=== PATIENT | male | born 1955 | race Caucasian/White ===

== ENCOUNTER → 2019-04-08 | Day surgery (SDC) | payer OTHER ==
[2019-04-03 13:08] LABS: BASOPHILS # (AUTO) 0.1 (0.0-0.1); BASOPHILS % 0.6 % (0.0-1.0); EOSINOPHILS # (AUTO) 0.1 (0.0-0.4); EOSINOPHILS % 1.1 % (0.0-6.0); HEMATOCRIT 38.3 % (38.2-49.6); LYMPHOCYTES # (AUTO) 2.9 (1.0-3.2); LYMPHOCYTES % 27.8 % (18.0-39.1); MEAN CORPUSCULAR HEMOGLOBIN 30.7 pg (28-32); MEAN CORPUSCULAR HGB CONC 33.9 g/dL (31-35); MEAN CORPUSCULAR VOLUME 90.5 fL (81-99); MONOCYTES # (AUTO) 0.7 (0.2-0.8); MONOCYTES % 6.8 % (4.4-11.3); NEUTROPHILS # (AUTO) 6.5 (2.1-6.9); NEUTROPHILS % 63.4 % (38.7-80.0); PLATELET COUNT 289 x10e3/uL (140-360); RED BLOOD COUNT 4.23 x10e6/uL (4.3-5.7); RED CELL DISTRIBUTION WIDTH 14.7 % (11.7-14.4)
[2019-04-03 13:37] LABS: ANION GAP 16.8 mmol/L (8-16); BLOOD UREA NITROGEN 24 mg/dL (7-26); BUN/CREATININE RATIO 24 (6-25); CALCIUM 9.2 mg/dL (8.4-10.2); CARBON DIOXIDE 26 mmol/L (22-29); CHLORIDE 99 mmol/L (98-107); EST GLOMERULAR FILTRATION RATE > 60 ML/MIN (60-); GLUCOSE 103 mg/dL (74-118); POTASSIUM 3.8 mmol/L (3.5-5.1); SODIUM 138 mmol/L (136-145)
--- NOTE | 2019-04-03 13:57 | Diagnostic Imaging Report ---
EXAMINATION: CHEST 2 VIEWS INDICATION: Pre-operative COMPARISON: None FINDINGS: LINES/TUBES:None LUNGS:The lungs are well-inflated. No focal consolidation or pulmonary edema. PLEURA:No pleural effusion or pneumothorax. MEDIASTINUM:The cardiomediastinal silhouette appears normal in size and shape. BONES/SOFT TISSUES:No acute osseous injury. ABDOMEN:No free air under the diaphragm. IMPRESSION: No focal pneumonia or pulmonary edema. Signed by: Jere Mckinney MD on 04/03/2019 1:54 PM
[~2019-04-08] MED LIST: CEFTRIAXONE SOD 1 GM/NS 50 ML 50 ML IV ONE; CIPRO PO; CYCLOBENZAPRINE10 MG PO; DEXAMETHASONE SOD PHOS INJ 4 MG/ML VIAL ONE; FENTANYL CITRATE/PF 100MCG/2 ML INJ ONE; FLOMAX0.4 MG PO; GENTAMICIN 80MG/NS 100 ML 200 ML IV ONE; HYDROCHLOROTHIA25 MG PO; LIDOCAINE HCL 2% LOCAL INJ 5 ML SDV VIAL INJ ONE; LISINOPRIL10 MG PO; METOPROLOL TART25 MG PO; MIDAZOLAM HCL 2 MG/2 ML VIAL ONE; ONDANSETRON HCL INJ 2MG/ML 2ML 2 MG/ML VIAL ONE; PANTOPRAZOLE SO40 MG PO; PRAMIPEXOLE PO; PROPOFOL IV EMULSION 10 MG/ML 20 ML VIAL ONE; SEVOFLURANE INHAL SOLN 250 ML PEN BTL ONE
--- OUTSIDE RECORDS SUMMARY | 2019-04-08 09:41 | XMS REPORT | Clinical Summary ---
Author Author [facility] Organization [facility] Address Unknown Phone Unavailable Care Team Providers Care Event Specialist Food Demonstrator Name Role Phone Sylwia Talley PCP Allergies Not on File Medications Not on file Active Problems Not on file Encounters Care Team Description Date Type Specialty Patel Stevens MD Elevated prostate specific antigen (PSA); Enlarged prostate with urinary obstruction; Retention of urine, unspecified 03/20/2019 Hospital Radiology Encounter Patel Stevens MD Elevated prostate specific antigen (PSA) (Primary Dx); Enlarged prostate with urinary obstruction; Retention of urine, unspecified 03/19/2019 Transcribe Access Orders Patel Stevens MD Enlarged prostate with urinary retention (Primary Dx); Enlarged prostate with urinary obstruction 03/03/2019 Transcribe Access Orders after 04/07/2018 Social History Date Tobacco Use Types Packs/Day Years Used Never Assessed Sex Assigned at Date Recorded Not on file Industry Job Start Date Occupation Not on file Not on file Not on file Travel End Travel History Travel Start No recent travel history available. Last Filed Vital Signs Time Taken Vital Sign Reading - Blood Pressure - - Pulse - - Temperature - - Respiratory Rate - - Oxygen Saturation - - Inhaled Oxygen - Concentration 03/16/2019 3:00 PM CDT Weight 125 kg (275 lb) 03/16/2019 3:00 PM CDT Height 188 cm (6' 2") 03/16/2019 3:00 PM CDT Body Mass Index 35.31 Plan of Treatment Health Maintenance Due Date Last Done Comments COLONOSCOPY SCREENING 2004 SHINGLES VACCINES (#1) 2004 INFLUENZA VACCINE 04/02/2019 Procedures Comments Procedure Name Priority Date/Time Associated Diagnosis US PROSTATE Routine 03/20/2019 Elevated prostate 4:20 PM CDT specific antigen (PSA) Enlarged prostate with urinary obstruction Retention of urine, unspecified CT ABDOMEN PELVIS W Routine 03/16/2019 Enlarged prostate with CONTRAST 5:32 PM CDT urinary retention Enlarged prostate with urinary obstruction ESTIMATED GFR Routine 03/16/2019 4:44 PM CDT POC CREATININE Routine 03/16/2019 4:44 PM CDT after 04/07/2018 Results * US Prostate (03/20/2019 4:20 PM CDT) Specimen Addenda Addendum by Catie White DO on 03/20/2019 6:41 PM ADDENDUM #1 There is a typographical error in the report about the laterality of the prostate mass and cyst. The mass is in the left side of the central zone and a small cyst is in the right side of the central zone. The impression is as follow: IMPRESSION: Benign prostatic hyperplasia with approximately 3.2 x 2.5 x 3 cm heterogeneous hyperechoic mass within the left side of the central zone. Prostate ultrasound guided biopsy is suggested for further evaluation if clinical indicated. No focal lesions are identified in the peripheral zone. No gross abnormality of the seminal vesicles is seen. Narrative Performed At PROCEDURE:US PROSTATE HM [facility] CLINICAL HISTORY:R97.20 Elevated prostate specific antigen (PSA), N40.1 Benign prostatic hyperplasia with lower urinary tract symptoms, R97.2 N40.1 R33.9 ELEVATED PSA COMPARISON:None. TECHNIQUE: A transrectal examination of the prostate gland was performed in transverse and sagittal views with color-flow Doppler interrogation. The seminal vesicles were also interrogated. FINDINGS: The prostate gland measures 8.0 x 4.8 x 4.7 cm. The peripheral zone is compressed by an enlarged central gland. No focal lesions are identified. Heterogeneity in echotexture is demonstrated of the central zone with scattered coarse calcifications. An approximately 3.2 x 2.5 x 3 cm heterogeneous hyperechoic mass is seen within the right side of the central zone. An approximately 4 mm cyst is seen within the right side of the central zone. No gross abnormality of the seminal vesicles is seen. A Carrera catheter is noted. IMPRESSION: Benign prostatic hyperplasia with approximately 3.2 x 2.5 x 3 cm heterogeneous hyperechoic mass within the right side of the central zone. Prostate ultrasound guided biopsy is suggested for further evaluation if clinical indicated. No focal lesions are identified in the peripheral zone. No gross abnormality of the seminal vesicles is seen. [id number] Procedure Note Interface, Radiology Results Incoming - 03/20/2019 5:23 PM CDT PROCEDURE: US PROSTATE CLINICAL HISTORY: R97.20 Elevated prostate specific antigen (PSA), N40.1 Benign prostatic hyperplasia with lower urinary tract symptoms, R97.2 N40.1 R33.9 ELEVATED PSA COMPARISON: None. TECHNIQUE: A transrectal examination of the prostate gland was performed in transverse and sagittal views with color-flow Doppler interrogation. The seminal vesicles were also interrogated. FINDINGS: The prostate gland measures 8.0 x 4.8 x 4.7 cm. The peripheral zone is compressed by an enlarged central gland. No focal lesions are identified. Heterogeneity in echotexture is demonstrated of the central zone with scattered coarse calcifications. An approximately 3.2 x 2.5 x 3 cm heterogeneous hyperechoic mass is seen within the right side of the central zone. An approximately 4 mm cyst is seen within the right side of the central zone. No gross abnormality of the seminal vesicles is seen. A Carrera catheter is noted. IMPRESSION: Benign prostatic hyperplasia with approximately 3.2 x 2.5 x 3 cm heterogeneous hyperechoic mass within the right side of the central zone. Prostate ultrasound guided biopsy is suggested for further evaluation if clinical indicated. No focal lesions are identified in the peripheral zone. No gross abnormality of the seminal vesicles is seen. [id number] Performing Organization Address City/State/Zipcode Phone Number [facility] [address] [place] [address] * CT Abdomen Pelvis W Contrast (03/16/2019 5:32 PM CDT) Specimen Narrative Performed At EXAMINATION:[facility] CL[facility]ICAL [facility]: 63 yearsMale N40.1 Benign prostatic hyperplasia with lower urinary tract symptoms, R33.8 Other retention of urine, ENLARGED PROSTATE TECHNIQUE: Multiple axial images of the abdomen and pelvis were obtained following intravenous administration of iodinated contrast. Sagittal and coronal computerized reformatted images were also obtained. CT imaging was performed with iterative reconstruction techniques and/or automated exposure control to reduce radiation dose. COMPARISON:None. IMPRESSION: Abdomen: 1. No parenchymal abnormality is noted in the lung bases. 2.The the liver and the spleen are normal in appearance. 3.The pancreas and both adrenal glands are normal in appearance, and both kidneys are normal in appearance. 4.Very minimal edema is present in the proximal small bowel mesentery with some nonspecific small lymph nodes none of which measure over 8 mm in longitudinal diameter. These findings are very nonspecific, and may be within the limits of normal. Pelvis: 1. No bowel distention is appreciated. 2.Carrera catheter is present within the nondistended urinary bladder. 3.There is no evidence of pelvic mass, or fluid collection. 4.Spondylolysis is noted involving L5, with grade 1 anterolisthesis of L5 upon S1. [facility]-[id number] Procedure Note Interface, Radiology Results - 03/16/2019 6:39 PM CDT EXAMINATION: CT ABDOMEN PELVIS W CONTRAST CLINICAL HISTORY: 63 yearsMale N40.1 Benign prostatic hyperplasia with lower urinary tract symptoms, R33.8 Other retention of urine, ENLARGED PROSTATE TECHNIQUE: Multiple axial images of the abdomen and pelvis were obtained following intravenous administration of iodinated contrast. Sagittal and coronal computerized reformatted images were also obtained. CT imaging was performed with iterative reconstruction techniques and/or automated exposure control to reduce radiation dose. COMPARISON: None. IMPRESSION: Abdomen: 1. No parenchymal abnormality is noted in the lung bases. 2. The the liver and the spleen are normal in appearance. 3. The pancreas and both adrenal glands are normal in appearance, and both kidneys are normal in appearance. 4. Very minimal edema is present in the proximal small bowel mesentery with some nonspecific small lymph nodes none of which measure over 8 mm in longitudinal diameter. These findings are very nonspecific, and may be within the limits of normal. Pelvis: 1. No bowel distention is appreciated. 2. Carrera catheter is present within the nondistended urinary bladder. 3. There is no evidence of pelvic mass, or fluid collection. 4. Spondylolysis is noted involving L5, with grade 1 anterolisthesis of L5 upon S1. [facility]-[id number] Performing Organization Address City/State/Zipcode Phone Number [facility] [address] [place] [address] * Estimated GFR (03/16/2019 4:44 PM CDT) [facility] Signature Estimated GFR 70 mL/min/1.73 m2 [place] Comment: [facility] CatergoryUnits[facility] G1 >=90 Normal or high G2 60-89Mildly decreased R4a90-51 Mildly to moderately decreased D3b59-03 Moderately to severely decreased G4 15-29Severely decreased G5 <15Kidney failure The eGFR was calculated using the Chronic Kidney Disease Epidemiology Collaboration (CKD-EPI) equation. Interpretation is based on recommendations of the National Kidney Foundation-Kidney Disease Outcomes Quality Initiative (NKF-KDOQI) published in 2014. Specimen Blood Performing Organization Address City/State/Zipcode Phone Number [facility] [address] [place] [phone] PATHOLOGY AND GENOMIC MEDICINE [place] [facility] [address] [facility] [place] [address] HOSPITAL * POC creatinine (03/16/2019 4:44 PM CDT) POC creatinine 1.1 0.7 - 1.2 mg/dl [place] Comment: TAOISM Meter ID: [id number] [place] Industrial Pipefitter Journeyman: [facility] Specimen Blood Performing Organization Address City/[facility] Phone Number [facility] [address] [place] [place] [phone] PATHOLOGY AND GENOMIC MEDICINE [place] [phone] [facility] [place] [address] HOSPITAL after 04/07/2018 Insurance Type Payer Benefit Subscriber ID Effective Phone Address Plan / Dates Group HMO AETNA AETNA xxxxxxxxxx [id number] HMO,POS,EP resent O, MC/EC (Home) [place] [address] Advance Directives Patient has advance care planning documents on file. For more information, roxana e contact: Keo Hudson [address] [place] [address]
--- OUTSIDE RECORDS SUMMARY | 2019-04-08 09:41 | XMS REPORT | Summary of Care ---
Author Author [facility] Organization [facility] Address Unknown Phone Unavailable Encounter HQ Rosibel(FIN) [id number] Date(s): 06/14/16 - 06/15/16 [facility] [address], [address] [place] [address]- Vital Signs No data available for this section Problem List Condition Effective Dates Status Health Status Informant Anxiety(Confirmed) Active Arthritis(Confirmed) Active High blood Active pressure(Confirmed) Hyperlipidemia(Confi Active rmed) Neuropathy(Confirmed Active ) Allergies, Adverse Reactions, Alerts Substance Reaction Severity Status NKDA Active Medications simvastatin 20 mg oral tablet 20 mg=1 tab, PO, Bedtime, # 90 tab, 3 Refill(s), Pharmacy: [facility] [id number] Start Date: 06/14/16 Status: Ordered Results No data available for this section Immunizations No data available for this section Procedures No data available for this section Social History Social History Type Response Smoking Status Former smoker; Exposure to Tobacco Smoke None; Cigarette Smoking Last 365 Days No; Reg Smoking Cessation Counseling No1 130 plus years Assessment and Plan No data available for this section
--- OUTSIDE RECORDS SUMMARY | 2019-04-08 09:41 | XMS REPORT | Summary of Care ---
Author Author [facility] Address Unknown Phone Unavailable Encounter HQ Encntr_alijennifer(FIN) [id number] Date(s): 04/17/16 - 04/17/16 [facility] [address] [place] [phone] Discharge Disposition: Home or Self Care Attending Physician: Toro Knight MD Vital Signs No data available for this section Problem List Condition Effective Dates Status Health Status Informant Anxiety(Confirmed) Active Arthritis(Confirmed) Active High blood Active pressure(Confirmed) Hyperlipidemia(Confi Active rmed) Neuropathy(Confirmed Active ) Allergies, Adverse Reactions, Alerts Substance Reaction Severity Status NKDA Active Medications No data available for this section Results No data available for this section [...]
--- OUTSIDE RECORDS SUMMARY | 2019-04-08 09:41 | XMS REPORT | Summary of Care ---
Author Author [facility] Organization [facility] Address Unknown Phone Unavailable Encounter HQ Rosibel(SUSANNE) [id number] Date(s): 08/04/15 - 08/05/15 [facility] [address] [place] [address], [address] Vital Signs No data available for this section Problem List No data available for this section Allergies, Adverse Reactions, Alerts No data available for this section Medications hydrochlorothiazide 25 mg oral tablet 25 mg=1 tab, PO, Daily, # 90 tab, 0 Refill(s), Pharmacy: [facility], Refill auth for Dr. Knight fax to [phone]. PHONE: [phone]. DO NOT send eRX request. Start Date: 08/04/15 Status: Ordered Results No data available for this section Immunizations No data available for this section Procedures No data available for this section Social History No data available for this section Assessment and Plan No data available for this section
--- OUTSIDE RECORDS SUMMARY | 2019-04-08 09:41 | XMS REPORT | Summary of Care ---
Author Author [facility] Organization [facility] Address Unknown Phone Unavailable Encounter EDGAR Vincent) [id number] Date(s): 10/24/15 - 10/24/15 [facility] [address] [place] [address]- [facility] [phone] Discharge Disposition: Home Attending Physician: Vivi Oconnor MD Referring Physician: Saúl Bro MD Vital Signs Most recent to 1 oldest [Reference Range]: Height 187.96 cm (10/24/15 2:43 PM) Temperature Oral 98.1 DegF [96.4-99.1 DegF] (10/24/15 2:43 PM) Weight 115.17 kg (10/24/15 2:43 PM) Body Mass Index 32.6 m2 (10/24/15 2:43 PM) Problem List Condition Effective Dates Status Health Status Informant Anxiety(Confirmed) Active Arthritis(Confirmed) Active High blood Active pressure(Confirmed) Hyperlipidemia(Confi Active rmed) Neuropathy(Confirmed Active ) Allergies, Adverse Reactions, Alerts Substance Reaction Severity Status NKDA Active Medications dicyclomine 20 mg oral tablet 20 mg=1 tab, PO, QID, 0 Refill(s) Start Date: 10/24/15 Status: Ordered GoLYTELY oral powder for reconstitution See Instructions, Take as directed by physician., # 1 ea, 0 Refill(s), Pharmacy: [facility] [id number] Start Date: 10/24/15 Status: Ordered lisinopril 10 mg oral tablet 10 mg=1 tab, PO, Daily, 0 Refill(s) Start Date: 10/24/15 Status: Ordered metoprolol tartrate 25 mg oral tablet 25 mg=1 tab, PO, BID, 0 Refill(s) Start Date: 10/24/15 Status: Ordered pantoprazole 40 mg oral granule =1 Pack, PO, Daily, # 30 ea, 0 Refill(s) Start Date: 10/24/15 Status: Ordered simvastatin 20 mg oral tablet 20 mg=1 tab, PO, Bedtime, 0 Refill(s) Start Date: 10/24/15 Status: Ordered Results No data available for [...]
--- OUTSIDE RECORDS SUMMARY | 2019-04-08 09:41 | XMS REPORT | Summary of Care ---
Author Organization Unknown Address Unknown Phone Unavailable Encounter HQ Encntr_alias(FIN) [id number] Date(s): 02/26/14 - 03/27/14 [facility] Discharge Disposition: Home Physician Attending: Skip Duarte MD Reason for Visit LT KNEE MEDIAL MENISCUS TEAR Problem List No data available for this section Allergies, Adverse Reactions, Alerts No data available for this section Medications No data available for this section Medications Administered During Your Visit No data available for this section Immunizations No data available for this section
--- OUTSIDE RECORDS SUMMARY | 2019-04-08 09:41 | XMS REPORT | Continuity of Care Document ---
Author Author [employer] Address Unknown Phone Unavailable Care Team Providers Care Warp Starter Name Role Phone [employer] Information [facility] Unavailable Unavailable Problems Problem Status Onset Date Classification Date Reported Comments Source SURGERY CLEARANCE Active 03/24/2019 [facility] Other cardiomyopathies 08/21/2018 03/03/2019 [facility] F/U Active 05/29/2018 [facility] FOLLOW UP Active 03/11/2017 [facility] BDDC - Z12.11 ENCOUNTER FOR SCREENING FO Active 10/24/2015 [facility] ABD PAIN [phone] Active 10/18/2015 [facility] Anxiety Active Problem 03/29/2019 [facility], [facility] Arthritis Active Problem 03/29/2019 [facility], [facility] High blood pressure Active Problem 03/29/2019 [facility], [facility] Hyperlipidemia Active Problem 03/29/2019 [facility], [facility] Neuropathy Active Problem 03/29/2019 [facility], [facility] Body mass index 36.0-36.9, adult 03/03/2019 [facility] Other obesity 03/03/2019 [facility] Essential hypertension 03/03/2019 [facility] Hyperlipidemia, unspecified 03/03/2019 [facility] Personal history of nicotine dependence 03/03/2019 [facility] Cardiomyopathy Active Problem 03/29/2019 [facility] Central obesity Active Problem 03/29/2019 [facility] Medications Medication Details Route Status Patient Instructions Ordering Provider Order Date Source metoprolol tartrate 25 mg oral tablet 25 mg=1 tab, PO, BID, # 180 tab, 0 Refill(s), Pharmacy: [facility], For Refill request please fax to [phone] Active 07/29/2017 [facility] Hydrochlorothiazide 25 MG Oral Tablet 25 mg=1 tab, PO, Daily, # 90 tab, 0 Refill(s), Pharmacy: [id number], For Refill request please fax to [phone] Active 07/29/2017 [facility] Hydrochlorothiazide 25 MG Oral Tablet 25 mg=1 tab, PO, Daily, # 90 tab, 3 Refill(s), Pharmacy: [facility] Active 06/27/2016 [facility] lisinopril 10 mg oral tablet 1.5 tablet, PO, BID, # 270 tab, 3 Refill(s), Pharmacy: [facility] Active 06/27/2016 [facility] simvastatin 20 mg oral tablet 20 mg=1 tab, PO, Bedtime, # 90 tab, 3 Refill(s), Pharmacy: [facility] Active 06/27/2016 [facility] metoprolol tartrate 25 mg oral tablet 25 mg=1 tab, PO, BID, X 90 day, # 180 tab, 3 Refill(s), Pharmacy: [facility] [id number] Active 06/25/2016 [facility] Hydrochlorothiazide 25 MG Oral Tablet 25 mg=1 tab, PO, Daily, # 90 tab, 3 Refill(s), Pharmacy: [facility] [id number] No Longer Active 06/25/2016 [facility] simvastatin 20 mg oral tablet 20 mg=1 tab, PO, Bedtime, # 90 tab, 3 Refill(s), Pharmacy: [facility] [id number] Active 06/14/2016 [facility] lisinopril 10 mg oral tablet 1.5 tablet, PO, BID, # 90 tab, 3 Refill(s), Pharmacy: [facility] [id number] Active 04/05/2016 [facility] simvastatin 20 mg oral tablet 20 mg=1 tab, PO, Bedtime, # 90 tab, 0 Refill(s), Pharmacy: [facility] [id number] Active 02/24/2016 [facility] lisinopril 10 mg oral tablet 10 mg=1 tab, PO, BID, # 180 tab, 0 Refill(s), Pharmacy: [facility] [id number] Active 02/24/2016 [facility] metoprolol tartrate 25 mg oral tablet 25 mg=1 tab, PO, BID, # 180 tab, 0 Refill(s), Pharmacy: [facility] [id number] Active 02/24/2016 [facility] Hydrochlorothiazide 25 MG Oral Tablet 25 mg=1 tab, PO, Daily, # 90 tab, 0 Refill(s), Pharmacy: [facility] [id number] Active 02/24/2016 [facility] GoLYTELY oral powder for reconstitution See Instructions, Take as directed by physician., # 1 ea, 0 Refill(s), Pharmacy: [facility] [id number] Active 10/24/2015 [facility] dicyclomine 20 mg oral tablet 20 mg=1 tab, PO, QID, 0 Refill(s) Active 10/24/2015 [facility] lisinopril 10 mg oral tablet 10 mg=1 tab, PO, Daily, 0 Refill(s) Active 10/24/2015 [facility] metoprolol tartrate 25 mg oral tablet 25 mg=1 tab, PO, BID, 0 Refill(s) Active 10/24/2015 [facility] simvastatin 20 mg oral tablet 20 mg=1 tab, PO, Bedtime, 0 Refill(s) Active 10/24/2015 [facility] pantoprazole 40 mg oral granule =1 Pack, PO, Daily, # 30 ea, 0 Refill(s) Active 10/24/2015 [facility] Hydrochlorothiazide 25 MG Oral Tablet 25 mg=1 tab, PO, Daily, # 90 tab, 0 Refill(s), Pharmacy: [facility] [id number], Refill auth for Dr. Knight fax to [phone]. PHONE: [phone]. DO NOT send eRX request. Active 08/04/2015 [facility] Allergies, Adverse Reactions, Alerts Substance Category Reaction Severity Reaction type Status Date Reported Comments Source No Known Medication Allergies Assertion Drug allergy [facility] Immunizations No Data Provided for This Section Results No Data Provided for This Section Pathology Reports No Data Provided for This Section Diagnostic Reports Report Value Date Source Ext Lower Arterial Doppler bilat US EXAM: US BILATERAL LOWER EXTREMITY ARTERIAL DOPPLER DATE: 04/17/2016 10:13 AM CDT INDICATION: S91.109A Unspecified open wound of unspecified toe(s) without damage to nail, initial encounter ADDITIONAL INFORMATION: None. COMPARISON: None. TECHNIQUE: Multiplanar grayscale, color Doppler and spectral Doppler ultrasound images of the bilateral lower extremity arteries. Segmental pressures were obtained and ankle/brachial indices were calculated. FINDINGS: Scattered areas of mild atherosclerotic plaque is seen without any focal areas of narrowing or significantly increased velocities to indicate hemodynamically significant stenosis. Right Extremity Waveforms: Common Femoral Artery: 88cm/s Triphasic Superficial Femoral Artery: 80cm/s Triphasic Popliteal Artery: 65cm/s Triphasic Posterior Tibialis Artery: 73cm/s Triphasic Anterior Tibialis Artery: 61cm/s Triphasic Peroneal Artery: 72cm/s Triphasic Dorsalis Pedis Artery: 38cm/s Triphasic Left Extremity Waveforms: Common Femoral Artery: 58cm/s Triphasic Superficial Femoral Artery: 76cm/s Triphasic Popliteal Artery: 61cm/s Triphasic Posterior Tibialis Artery: 1:15cm/s Triphasic Anterior Tibialis Artery: 75cm/s Triphasic Peroneal Artery: 78cm/s Triphasic Dorsalis Pedis Artery: 39cm/s Triphasic IMPRESSION: 1. Normal Doppler exam with triphasic waveforms throughout bilateral lower extremities.. 04/17/2016 [facility] Consultation Notes No Data Provided for This Section Discharge Summaries No Data Provided for This Section History and Physicals No Data Provided for This Section Vital Signs Vital Sign Value Date Comments Source BMI Calculated 36.97 03/27/2019 [facility] Weight 123.636 03/27/2019 [facility] Systolic (mm Hg) 128 03/27/2019 [facility] Diastolic (mm Hg) 78 03/27/2019 [facility] Height 182.88 cm 03/27/2019 [facility] Respitory Rate 18 03/27/2019 [facility] Temperature Oral (F) 97.9 F 03/27/2019 [facility] Heart Rate 63 03/27/2019 [facility] Weight 123.182 08/13/2018 [facility] BMI Calculated 36.83 08/13/2018 [facility] Height 182.88 cm 08/13/2018 [facility] Heart Rate 66 08/13/2018 [facility] Temperature Oral (F) 98.5 F 08/13/2018 [facility] Respitory Rate 18 08/13/2018 [facility] Systolic (mm Hg) 145 08/13/2018 [facility] Diastolic (mm Hg) 84 08/13/2018 [facility] Temperature Oral (F) 98.3 F 08/09/2017 [facility] Respitory Rate 18 08/09/2017 [facility] BMI Calculated 35.98 08/09/2017 [facility] Weight 122.33 08/09/2017 [facility] Height 184.4 cm 08/09/2017 [facility] Systolic (mm Hg) 127 08/09/2017 [facility] Diastolic (mm Hg) 80 08/09/2017 [facility] Heart Rate 70 08/09/2017 [facility] Heart Rate 84 04/05/2016 [facility] Height 187.96 cm 04/05/2016 [facility] Weight 118.182 04/05/2016 [facility] BMI Calculated 33.45 04/05/2016 [facility] Temperature Oral (F) 97 F 04/05/2016 [facility] Respitory Rate 18 04/05/2016 [facility] Systolic (mm Hg) 140 04/05/2016 [facility] Diastolic (mm Hg) 86 04/05/2016 [facility] BMI Calculated 32.6 10/24/2015 [facility] Height 187.96 cm 10/24/2015 [facility] Weight 115.17 10/24/2015 [facility] Temperature Oral (F) 98.1 F 10/24/2015 [facility] Encounters Location Location Details Encounter Type Encounter Number Reason For Visit Attending Provider ADM Date DC Date Status Source [facility] OP Therapy Patients [id number] Skip Duarte 02/26/2014 03/28/2014 [facility] Phone Message [id number] 08/04/2015 08/06/2015 [facility] [id number] Atilla Ertan 10/24/2015 10/25/2015 [facility]patient [id number] Atilla Ertan 11/10/2015 11/10/2015 [facility] Phone Message [id number] 02/24/2016 02/26/2016 [facility] Outpatient [id number] Toro Knight 04/05/2016 04/06/2016 [facility] [id number] Toro Knight 04/17/2016 04/18/[address] [facility] Phone Message [id number] 06/14/2016 06/16/2016 [facility] Phone Message [id number] 06/25/2016 06/27/2016 [facility] Phone Message [id number] 06/27/2016 06/29/2016 [facility] Outpatient [id number] Toro Knight 08/09/2017 08/10/2017 [facility] Outpatient [id number] Toro Knight 08/13/2018 08/14/2018 [facility] Outpatient [id number] Toro Knight 03/27/2019 03/28/2019 [facility] Procedures No Data Provided for This Section Assessment and Plan No Data Provided for This Section Plan of Care No Data Provided for This Section Social History Social History Date Source Social History TypeResponse Smoking Status Former smoker; Exposure to Tobacco Smoke None; Cigarette Smoking Last 365 Days No; Reg Smoking Cessation Counseling No1 entered on: 03/27/19 130 plus years 03/27/2019 [facility] Social History TypeResponse Smoking Status Former smoker; Exposure to Tobacco Smoke None; Cigarette Smoking Last 365 Days No; Reg Smoking Cessation Counseling No1 130 plus years 04/05/2016 [facility] Social History TypeResponse Smoking Status Former smoker; Exposure to Tobacco Smoke None; Cigarette Smoking Last 365 Days No; Reg Smoking Cessation Counseling No1 130 plus years 04/05/2016 [facility] Family History No Data Provided for This Section Advance Directives No Data Provided for This Section Functional Status No Data Provided for This Section
--- OUTSIDE RECORDS SUMMARY | 2019-04-08 09:41 | XMS REPORT | Summary of Care ---
Author Author [facility] Organization [facility] Address Unknown Phone Unavailable Encounter EDGAR Gleason(SUSANNE) [id number] Date(s): 04/05/16 - 04/05/16 [facility] [address] [place] [phone] Discharge Disposition: Home or Self Care Attending Physician: Toro Knight MD Referring Physician: Toro Knight MD Vital Signs Most recent to 1 oldest [Reference Range]: Height 187.96 cm (04/05/16 1:10 PM) Temperature Oral 97 DegF [96.4-99.1 DegF] (04/05/16 1:10 PM) Blood Pressure 140/86 mmHg [90-140/60-90 mmHg] (04/05/16 1:10 PM) Respiratory Rate 18 BRMIN [14-20 BRMIN] (04/05/16 1:10 PM) Peripheral Pulse 84 bpm Rate [60-100 bpm] (04/05/16 1:10 PM) Weight 118.182 kg (04/05/16 1:10 PM) Body Mass Index 33.45 m2 (04/05/16 1:10 PM) Problem List Condition Effective Dates Status Health Status Informant Anxiety(Confirmed) Active Arthritis(Confirmed) Active High blood Active pressure(Confirmed) Hyperlipidemia(Confi Active rmed) Neuropathy(Confirmed Active ) Allergies, Adverse Reactions, Alerts Substance Reaction Severity Status NKDA Active Medications lisinopril 10 mg oral tablet 1.5 tablet, PO, BID, # 90 tab, 3 Refill(s), Pharmacy: [facility] [id number] Start Date: 04/05/16 Status: Ordered Results No data available for [...]
--- OUTSIDE RECORDS SUMMARY | 2019-04-08 09:41 | XMS REPORT | Summary of Care ---
Author Author [facility] Organization [facility] Address Unknown Phone Unavailable Encounter EDGAR Gleason(FIN) [id number] Date(s): 02/24/16 - 02/25/16 [facility] [address], [address] [place], [place] [address] Vital Signs No data available for this section Problem List Condition Effective Dates Status Health Status Informant Anxiety(Confirmed) Active Arthritis(Confirmed) Active High blood Active pressure(Confirmed) Hyperlipidemia(Confi Active rmed) Neuropathy(Confirmed Active ) Allergies, Adverse Reactions, Alerts Substance Reaction Severity Status NKDA Active Medications hydrochlorothiazide 25 mg oral tablet 25 mg=1 tab, PO, Daily, # 90 tab, 0 Refill(s), Pharmacy: [id number] Start Date: 02/24/16 Status: Ordered lisinopril 10 mg oral tablet 10 mg=1 tab, PO, BID, # 180 tab, 0 Refill(s), Pharmacy: [facility] Start Date: 02/24/16 Stop Date: 05/24/16 Status: Ordered metoprolol tartrate 25 mg oral tablet 25 mg=1 tab, PO, BID, # 180 tab, 0 Refill(s), Pharmacy: [facility] Start Date: 02/24/16 Status: Ordered simvastatin 20 mg oral tablet 20 mg=1 tab, PO, Bedtime, # 90 tab, 0 Refill(s), Pharmacy: [facility] [id number] Start Date: 02/24/16 Status: Ordered Results No data available for [...]
--- OUTSIDE RECORDS SUMMARY | 2019-04-08 09:41 | XMS REPORT | Summary of Care ---
Author Author [facility] Organization [facility] Address Unknown Phone Unavailable Encounter EDGAR Gleason(SUSANNE) [id number] Date(s): 03/27/19 - 03/27/19 [facility] [address], [address] [place], [place] [address] Discharge Disposition: Home or Self Care Attending Physician: Toro Knight MD Referring Physician: Toro Knight MD Vital Signs Most recent to 1 oldest [Reference Range]: Height 182.88 cm (03/27/19 8:43 AM) Temperature Oral 97.9 DegF [96.4-99.1 DegF] (03/27/19 8:43 AM) Blood Pressure 128/78 mmHg [90-140/60-90 mmHg] (03/27/19 8:43 AM) Respiratory Rate 18 BRMIN [14-20 BRMIN] (03/27/19 8:43 AM) Peripheral Pulse 63 bpm Rate [60-100 bpm] (03/27/19 8:43 AM) Weight 123.636 kg (03/27/19 8:43 AM) Body Mass Index 36.97 m2 (03/27/19 8:43 AM) Problem List Condition Effective Dates Status Health Status Informant Anxiety(Confirmed) Active Arthritis(Confirmed) Active Cardiomyopathy(Confi Active rmed) Central Active obesity(Confirmed) High blood Active pressure(Confirmed) Hyperlipidemia(Confi Active rmed) Neuropathy(Confirmed Active ) Allergies, Adverse Reactions, Alerts No Known Medication Allergies Medications No Known Medications Results No data available for this section Immunizations No data available for this section Procedures No data available for this section Social History Social History Type Response Smoking Status Former smoker; Exposure to Tobacco Smoke None; Cigarette Smoking Last 365 Days No; Reg Smoking Cessation Counseling No1 entered on: 03/27/19 130 plus years Assessment and Plan No data available for this section
--- OUTSIDE RECORDS SUMMARY | 2019-04-08 09:41 | XMS REPORT | Summary of Care ---
Author Author [facility] Organization [facility] Address Unknown Phone Unavailable Encounter HQ Rosibel(SUSANNE) [id number] Date(s): 11/10/15 - 11/10/15 [facility] [address] [place], [place] [id number] [place] [address] Discharge Disposition: Home Attending Physician: Vivi Oconnor MD Referring Physician: Vivi Oconnor MD Vital Signs No data available for [...]
--- OUTSIDE RECORDS SUMMARY | 2019-04-08 09:41 | XMS REPORT | Summary of Care ---
Author Author [facility] Organization [facility] Address Unknown Phone Unavailable Encounter EDGAR Gleason(SUSANNE) [id number] Date(s): 08/13/18 - 08/13/18 [facility] [address], [address] [place] [address]- Encounter Diagnosis Other cardiomyopathies (Final) - 08/20/18 Body mass index (BMI) 36.0-36.9, adult (Final) - Other obesity (Final) - Essential (primary) hypertension (Final) - Hyperlipidemia, unspecified (Final) - Personal history of nicotine dependence (Final) - Discharge Disposition: Home or Self Care Attending Physician: Toro Knight MD Referring Physician: Toro Knight MD Vital Signs Most recent to 1 oldest [Reference Range]: Height 182.88 cm (08/13/18 9:13 AM) Temperature Oral 98.5 DegF [96.4-99.1 DegF] (08/13/18 9:13 AM) Blood Pressure 145/84 mmHg [90-140/60-90 mmHg] *HI* (08/13/18 9:13 AM) Respiratory Rate 18 BRMIN [14-20 BRMIN] (08/13/18 9:13 AM) Peripheral Pulse 66 bpm Rate [60-100 bpm] (08/13/18 9:13 AM) Weight 123.182 kg (08/13/18 9:13 AM) Body Mass Index 36.83 m2 (08/13/18 9:13 AM) Problem List Condition Effective Dates Status [...] Reg Smoking Cessation Counseling No1 entered on: 08/13/18 130 plus years Assessment and Plan No data available for this section
--- OUTSIDE RECORDS SUMMARY | 2019-04-08 09:41 | XMS REPORT | Summary of Care ---
Author Author [facility] Organization [facility] Address Unknown Phone Unavailable Encounter EDGAR Gleason(SUSANNE) [id number] Date(s): 08/09/17 - 08/09/17 [facility] [address], [address] [place], [place] [address] Discharge Disposition: Home or Self Care Attending Physician: Toro Knight MD Referring Physician: Toro Knight MD Vital Signs Most recent to 1 oldest [Reference Range]: Height 184.4 cm (08/09/17 10:52 AM) Temperature Oral 98.3 DegF [96.4-99.1 DegF] (08/09/17 10:52 AM) Blood Pressure 127/80 mmHg [90-140/60-90 mmHg] (08/09/17 10:52 AM) Respiratory Rate 18 BRMIN [14-20 BRMIN] (08/09/17 10:52 AM) Peripheral Pulse 70 bpm Rate [60-100 bpm] (08/09/17 10:52 AM) Weight 122.33 kg (08/09/17 10:52 AM) Body Mass Index 35.98 m2 (08/09/17 10:52 AM) Problem List Condition Effective Dates Status Health Status Informant Anxiety(Confirmed) Active Arthritis(Confirmed) Active Cardiomyopathy(Confi Active rmed) High blood Active pressure(Confirmed) Hyperlipidemia(Confi Active rmed) Neuropathy(Confirmed Active ) Allergies, Adverse Reactions, Alerts Substance Reaction Severity Status NKDA Active Medications hydrochlorothiazide 25 mg oral tablet 25 mg=1 tab, PO, Daily, # 90 tab, 0 Refill(s), Pharmacy: [id number], For Refill request please fax to [phone] Start Date: 07/29/17 Status: Ordered metoprolol tartrate 25 mg oral tablet 25 mg=1 tab, PO, BID, # 180 tab, 0 Refill(s), [id number], For Refill request please fax to [phone] Start Date: 07/29/17 Stop Date: 10/27/17 Status: Ordered Results No data available for [...]
--- OUTSIDE RECORDS SUMMARY | 2019-04-08 09:42 | XMS REPORT | Summary of Care ---
Author Author [facility] Organization [facility] Address Unknown Phone Unavailable Encounter HQ Rosibel(FIN) [id number] Date(s): 06/25/16 - 06/26/16 [facility] [address], [address] [place], [place] [address] Vital Signs No data available for this section Problem List Condition Effective Dates Status Health Status Informant Anxiety(Confirmed) Active Arthritis(Confirmed) Active High blood Active pressure(Confirmed) Hyperlipidemia(Confi Active rmed) Neuropathy(Confirmed Active ) Allergies, Adverse Reactions, Alerts Substance Reaction Severity Status NKDA Active Medications hydrochlorothiazide 25 mg oral tablet 25 mg=1 tab, PO, Daily, # 90 tab, 3 Refill(s), Pharmacy: [id number] Start Date: 06/25/16 Stop Date: 06/27/16 Status: Completed metoprolol tartrate 25 mg oral tablet 25 mg=1 tab, PO, BID, X 90 day, # 180 tab, 3 Refill(s), Pharmacy: [facility] [id number] Start Date: 06/25/16 Stop Date: 06/20/17 Status: Ordered Results No data available for [...]
--- OUTSIDE RECORDS SUMMARY | 2019-04-08 09:42 | XMS REPORT ---
Author [facility] Address Unknown Phone Unavailable Care Team Providers Care [facility] Specialist Name Role Phone Ric ARZOLA Unavailable Unavailable Payers Payer Name Policy Type Policy Number Effective Date Expiration Date Problems This patient has no known problems. Allergies, Adverse Reactions, Alerts This patient has no known allergies or adverse reactions. Medications This patient has no known medications. Encounters Start Date/Time End Date/Time Encounter Type Admission Type Attending Clinicians Care Facility Care Department Encounter ID 2019-03-27 08:20:00 2019-03-27 08:20:00 Outpatient [facility] [id number] Results Test Description Test Time Test Comments Text Results Atomic Results Result Comments CHEST 2 VIEWS 2019-04-03 13:53:00 [facility] [address] [address] Patient Name: ADARSH LOZADA MR #: [id number] : 1955 Age/Sex: 63/M Req #: [id number] Adm Physician: Ordered by: ROBE ARZOLA MD Report #: [id number] Location: OR Room/Bed: Procedure: [id number] DX/CHEST 2 VIEWS Exam Date: 04/03/19 Exam Time: 1245 REPORT STATUS: Signed EXAMINATION: CHEST 2 VIEWS INDICATION: Pre-operative COMPARISON: None FINDINGS: LINES/TUBES:None LUNGS:The lungs are well-inflated. No focal consolidation or pulmonary edema. PLEURA:No pleural effusion or pneumothorax. MEDIASTINUM:The cardiomediastinal silhouette appears normal in size and shape. BONES/SOFT TISSUES:No acute osseous injury. ABDOMEN:No free air under the diaphragm. IMPRESSION: No focal pneumonia or pulmonary edema. Signed by: Cassidy Renee MD on 04/03/2019 1:54 PM Dictated By: CASSIDY RENEE MD [id number] Transcribed By: ERIS PAT on 04/03/19 135 COPY TO: ROBE ARZOLA MD
--- OUTSIDE RECORDS SUMMARY | 2019-04-08 09:42 | XMS REPORT | Summary of Care ---
Author Author [facility] Organization [facility] Address Unknown Phone Unavailable Encounter HQ Rosibel(FIN) [id number] Date(s): 06/27/16 - 06/28/16 [facility] [address], [address] [place] [address]- Vital Signs No data available for this section Problem List Condition Effective Dates Status Health Status Informant Anxiety(Confirmed) Active Arthritis(Confirmed) Active High blood Active pressure(Confirmed) Hyperlipidemia(Confi Active rmed) Neuropathy(Confirmed Active ) Allergies, Adverse Reactions, Alerts Substance Reaction Severity Status NKDA Active Medications hydrochlorothiazide 25 mg oral tablet 25 mg=1 tab, PO, Daily, # 90 tab, 3 Refill(s), Pharmacy: [facility] Start Date: 06/27/16 Status: Ordered lisinopril 10 mg oral tablet 1.5 tablet, PO, BID, # 270 tab, 3 Refill(s), Pharmacy: [facility] Start Date: 06/27/16 Stop Date: 06/22/17 Status: Ordered simvastatin 20 mg oral tablet 20 mg=1 tab, PO, Bedtime, # 90 tab, 3 Refill(s), Pharmacy: [facility] Start Date: 06/27/16 Status: Ordered Results No data available for [...]
[2019-04-08 14:15] VITALS: BP 120/73
--- NOTE | 2019-04-08 16:15 | Operative Report ---
DATE OF PROCEDURE: 04/08/2019 SURGEON: Patel Stevens MD PREOPERATIVE DIAGNOSES: 1. Prostatic infection. 2. Rule out carcinoma of the prostatic. 3. Abnormal PSA 16.8. POSTOPERATIVE DIAGNOSES: 1. Prostatic infection. 2. Rule out carcinoma of the prostatic. 3. Abnormal PSA 16.8. OPERATIONS: 1. Prostatic ultrasound. 2. Transrectal ultrasound guided needle biopsies. 3. Cystourethroscopy. ANESTHETIC: General. INDICATIONS: Mr. Bah is a 63-year-old male who presented with a chief complaint of urine retention. Rectal exam showed an enlarged prostatic gland and firm of the right base. His PSA was 16.8. This patient was placed on the table in lithotomy position and transrectal ultrasound of the prostate was performed and the prostate showed multiple hypoechoic areas on both bases. He also has multiple calcifications with post calcification shadowing. Transrectal ultrasound of the prostate guided biopsies were done and biopsies were obtained from the hypoechoic areas and from the normal appearing prostate. This patient was then prepped and draped in a sterile manner. A #23 Frisian cystoscope was used and cystourethroscopy was performed and it was noted that the urethra was normal. The prostatic urethra was about 4 cm long, trilobar and occlusive with a small median lobe. Cystoscopy was then performed using both right angle and foroblique lens and it was noted that the bladder mucosa was normal with no evidence of gross tumor, pathology, or any palpable lesions. The bladder wound was moderately trabeculated. There was no evidence of gross tumor, pathology or any palpable lesions. The bladder was drained. Cystoscope removed. Carrera catheter was replaced. The patient returned to the office in 1 week and at that time we will have results of biopsy and go from there. Patel Stevens MD MA/MATEO /[id number]
== END | disposition home or self-care (01) ==
LOC: OR 09:39
PROVIDERS: ATTEND Specialist
DX: N40.1 Benign prostatic hyperplasia with lower urinary tract symptoms (principal); R33.8 Other retention of urine; R97.20 Elevated prostate specific antigen [PSA]; K21.9 Gastro-esophageal reflux disease without esophagitis; E66.01 Morbid (severe) obesity due to excess calories; G47.33 Obstructive sleep apnea (adult) (pediatric); I10 Essential (primary) hypertension; Z88.2 Allergy status to sulfonamides; Z88.8 Allergy status to other drugs, medicaments and biological substances
CPT/HCPCS: 36415; 55700; 71046; 76872; 76998; 80048; 85025; 85730; 88305; 93005; J0696; J1100; J1580; J2001; J2250; J2405; J2704; J3010

== ENCOUNTER 2021-03-01 09:47 | Inpatient (IN) | payer MEDICARE ==
[2021-02-24 15:53] LABS: BASOPHILS # (AUTO) 0.1 (0.0-0.1); BASOPHILS % 0.6 % (0.0-1.0); EOSINOPHILS # (AUTO) 0.2 (0.0-0.4); EOSINOPHILS % 1.1 % (0.0-6.0); HEMATOCRIT 29.6 % (38.2-49.6); HEMOGLOBIN 8.8 g/dL (14.0-18.0); LYMPHOCYTES # (AUTO) 2.8 (1.0-3.2); LYMPHOCYTES % 19.6 % (18.0-39.1); MEAN CORPUSCULAR HEMOGLOBIN 25.3 pg (28-32); MEAN CORPUSCULAR HGB CONC 29.7 g/dL (31-35); MEAN CORPUSCULAR VOLUME 85.1 fL (81-99); MONOCYTES # (AUTO) 0.9 (0.2-0.8); MONOCYTES % 6.5 % (4.4-11.3); NEUTROPHILS # (AUTO) 10.1 (2.1-6.9); NEUTROPHILS % 71.6 % (38.7-80.0); PLATELET COUNT 402 x10e3/uL (140-360); RED BLOOD COUNT 3.48 x10e6/uL (4.3-5.7); RED CELL DISTRIBUTION WIDTH 17.1 % (11.7-14.4)
[2021-02-24 16:19] LABS: ANION GAP 15.6 mmol/L (8-16); CALCIUM 9.3 mg/dL (8.4-10.2); CREATININE, SERUM 1.58 mg/dL (0.72-1.25); POTASSIUM 4.6 mmol/L (3.5-5.1)
[~2021-03-01] VITALS: Ht 188 cm; Wt 116.1 kg
[~2021-03-01 09:47] MED LIST changes: +ATORVASTATIN CA20 MG PO; +BELBUCA300 MCG TOP; -CEFTRIAXONE SOD 1 GM/NS 50 ML 50 ML IV ONE; +CITALOPRAM HBR20 MG PO; -DEXAMETHASONE SOD PHOS INJ 4 MG/ML VIAL ONE; -FENTANYL CITRATE/PF 100MCG/2 ML INJ ONE; -GENTAMICIN 80MG/NS 100 ML 200 ML IV ONE; -LIDOCAINE HCL 2% LOCAL INJ 5 ML SDV VIAL INJ ONE; +METFORMIN HCL500 MG PO; -MIDAZOLAM HCL 2 MG/2 ML VIAL ONE; +NEURONTIN400 MG PO; -ONDANSETRON HCL INJ 2MG/ML 2ML 2 MG/ML VIAL ONE; +PERCOCET 7.5-31 EACH PO; -PROPOFOL IV EMULSION 10 MG/ML 20 ML VIAL ONE; -SEVOFLURANE INHAL SOLN 250 ML PEN BTL ONE
[2021-03-01] MEDS ORDERED: AMBIEN10 MG PO (10:36)
[2021-03-01] MEDS ORDERED: FLUCONAZOLE 200 MG/100 ML 100 ML IV ONE (10:51)
[2021-03-01] MEDS ORDERED: GENTAMICIN 80MG/NS 100 ML 200 ML IV ONE (10:52)
[2021-03-01] MEDS ORDERED: AMPICILLIN SOD 1 GM/NS 50ML 50 ML IV ONE (10:52)
[2021-03-01] MEDS ORDERED: SODIUM CHLORIDE 0.9% 1000ML 1,000 ML ONE (10:52)
[2021-03-01] MEDS ORDERED: B&O 60MG R/S 60 MG SUPP PR PRN (11:45)
[2021-03-01] MEDS ORDERED: ONDANSETRON HCL INJ 2MG/ML 2ML 2 MG/ML VIAL IV PRN (11:45)
[2021-03-01] MEDS ORDERED: D5.45%NS/KCL 20MEQ 1,000 ML IV SCH (11:45)
[2021-03-01] MEDS ORDERED: ACETAMINOPHEN/CODEINE 300MG - 30MG TAB PO PRN (11:45)
[2021-03-01] MEDS ORDERED: DIPHENHYDRAMINE HCL 25 MG CAP PO PRN (11:45)
[2021-03-01] MEDS ORDERED: PHENAZOPYRIDINE HCL 100 MG TAB PO PRN (11:45)
[2021-03-01] MEDS ORDERED: IOPAMIDOL 300MG/ML 50ML INFUS..BTL IV ONE (13:08)
[2021-03-01] MEDS ORDERED: FENTANYL CITRATE/PF 100MCG/2 ML INJ ONE (14:25)
[2021-03-01] MEDS ORDERED: PROPOFOL IV EMULSION 10 MG/ML 20 ML VIAL ONE (14:42)
[2021-03-01] MEDS ORDERED: LIDOCAINE HCL 2% LOCAL INJ 5 ML SDV VIAL INJ ONE (14:42)
[2021-03-01] MEDS ORDERED: POVIDONE IODINE 0.05% 0.05 % ML PO ONE (14:42)
[2021-03-01] MEDS ORDERED: SEVOFLURANE INHAL SOLN 250 ML PEN BTL ONE (14:42)
[2021-03-01] MEDS ORDERED: ONDANSETRON HCL INJ 2MG/ML 2ML 2 MG/ML VIAL ONE (14:42)
[2021-03-01] MEDS ORDERED: DEXAMETHASONE SOD PHOS INJ 4 MG/ML VIAL ONE (14:42)
[2021-03-01] MEDS ORDERED: MORPHINE SULFATE INJ 2 MG/ML SYR ONE (14:47)
[2021-03-01] MEDS ORDERED: MEPERIDINE HCL INJ 25 MG/ML VIAL ONE (15:03)
[2021-03-01 15:18] VITALS: BP 133/79
[2021-03-01 15:29] LABS: BASOPHILS # (AUTO) 0.1 (0.0-0.1); BASOPHILS % 0.4 % (0.0-1.0); EOSINOPHILS % 0.2 % (0.0-6.0); HEMATOCRIT 26.9 % (38.2-49.6); HEMOGLOBIN 8.1 g/dL (14.0-18.0); LYMPHOCYTES # (AUTO) 1.3 (1.0-3.2); LYMPHOCYTES % 6.5 % (18.0-39.1); MEAN CORPUSCULAR HEMOGLOBIN 25.9 pg (28-32); MEAN CORPUSCULAR HGB CONC 30.1 g/dL (31-35); MEAN CORPUSCULAR VOLUME 85.9 fL (81-99); MONOCYTES # (AUTO) 0.4 (0.2-0.8); MONOCYTES % 2.1 % (4.4-11.3); NEUTROPHILS # (AUTO) 17.5 (2.1-6.9); NEUTROPHILS % 90.1 % (38.7-80.0); PLATELET COUNT 363 x10e3/uL (140-360); RED BLOOD COUNT 3.13 x10e6/uL (4.3-5.7); RED CELL DISTRIBUTION WIDTH 16.9 % (11.7-14.4)
[2021-03-01 15:46] LABS: ANION GAP 12.6 mmol/L (8-16); CALCIUM 8.2 mg/dL (8.4-10.2); CREATININE, SERUM 1.08 mg/dL (0.72-1.25); POTASSIUM 4.6 mmol/L (3.5-5.1)
[2021-03-01] MEDS: DOCUSATE SODIUM 100 MG CAP PO SCH (18:41)
[2021-03-01] MEDS: SODIUM CHLORIDE 0.9% 1000ML 1,000 ML IV SCH (18:41)
[2021-03-01] MEDS ORDERED: ZOLPIDEM TARTRATE 10 MG TAB PO PRN (19:00)
[2021-03-01] MEDS ORDERED: NON-FORMULARY MEDICATION (Oxycodone Hcl/Acetaminophen (Percocet 7.5-325 Mg Tablet) 1 TAB) PO PRN (19:00)
[2021-03-01] MEDS ORDERED: BUPRENORPHINE HCL 300 MCG TOP PRN (19:00)
[2021-03-01] MEDS ORDERED: DEXTROSE 50% SYRINGE 50 ML IV PRN (19:30)
[2021-03-01] MEDS: OXYCODONE/ACETAMINOPHEN 5-325 1 EACH TABLET PO PRN (19:52)
[2021-03-01 20:00] VITALS: BP 148/85
[2021-03-01 20:22] VITALS: BP 148/85
[2021-03-01] MEDS: INSULIN LISPRO 100 UNIT/1 ML 3ML VIAL SQ SCH (20:38)
[2021-03-01] MEDS ORDERED: PRAMIPEXOLE DIHYDROCHLORIDE 0.25 MG TAB PO SCH (21:00)
[2021-03-01] MEDS ORDERED: ATORVASTATIN 20 MG TAB PO SCH (21:00)
[2021-03-01] MEDS: GABAPENTIN 400 MG CAP PO SCH (21:36)
[2021-03-01] MEDS: AMPICILLIN SOD 1 GM/NS 50ML 50 ML IV SCH (21:36)
[2021-03-02] VITALS: BP 121/69
[2021-03-02] MEDS ORDERED: GENTAMICIN 80MG/NS 100 ML 100 ML IV SCH
[2021-03-02] MEDS: OXYCODONE/ACETAMINOPHEN 5-325 1 EACH TABLET PO PRN ×2 (01:43→08:22)
[2021-03-02] MEDS: SODIUM CHLORIDE 0.9% 1000ML 1,000 ML IV SCH ×2 (02:15→06:12)
[2021-03-02 04:00] VITALS: BP 113/70
[2021-03-02] MEDS: AMPICILLIN SOD 1 GM/NS 50ML 50 ML IV SCH (05:13)
[2021-03-02] MEDS: GABAPENTIN 400 MG CAP PO SCH (05:13)
[2021-03-02 05:39] LABS: BASOPHILS % 0.2 % (0.0-1.0); LYMPHOCYTES # (AUTO) 1.1 (1.0-3.2); LYMPHOCYTES % 12.1 % (18.0-39.1); MEAN CORPUSCULAR HEMOGLOBIN 25.6 pg (28-32); MEAN CORPUSCULAR HGB CONC 30.4 g/dL (31-35); MEAN CORPUSCULAR VOLUME 84.2 fL (81-99); MONOCYTES # (AUTO) 0.5 (0.2-0.8); MONOCYTES % 4.9 % (4.4-11.3); NEUTROPHILS # (AUTO) 7.7 (2.1-6.9); NEUTROPHILS % 82.2 % (38.7-80.0); PLATELET COUNT 376 x10e3/uL (140-360); RED BLOOD COUNT 2.73 x10e6/uL (4.3-5.7); RED CELL DISTRIBUTION WIDTH 16.9 % (11.7-14.4)
[2021-03-02 06:37] LABS: ANION GAP 12.1 mmol/L (8-16); CALCIUM 7.8 mg/dL (8.4-10.2); CREATININE, SERUM 0.82 mg/dL (0.72-1.25); POTASSIUM 4.1 mmol/L (3.5-5.1)
[2021-03-02] MEDS ORDERED: ONDANSETRON HCL 4 MG ORAL DISINTEGRATING TAB PO PRN (07:00)
[2021-03-02] MEDS ORDERED: PANTOPRAZOLE SOD 40 MG TABEC PO SCH (07:30)
[2021-03-02] MEDS: INSULIN LISPRO 100 UNIT/1 ML 3ML VIAL SQ SCH (07:30)
[2021-03-02 07:45] VITALS: BP 133/72
[2021-03-02] MEDS: DOCUSATE SODIUM 100 MG CAP PO SCH (08:08)
[2021-03-02] MEDS ORDERED: METFORMIN HCL 500 MG TAB PO SCH (09:00)
[2021-03-02] MEDS ORDERED: METOPROLOL TARTRATE 25 MG TAB PO SCH (09:00)
[2021-03-02] MEDS ORDERED: CITALOPRAM HYDROBROMIDE 20 MG TAB PO SCH (09:00)
[2021-03-02] MEDS ORDERED: LISINOPRIL 10 MG TAB PO SCH (09:00)
[2021-03-02] MEDS ORDERED: FLUCONAZOLE 100 MG TAB PO SCH (09:00)
[2021-03-02] MEDS ORDERED: HYDROCHLOROTHIAZIDE 25 MG TAB PO SCH (09:00)
[2021-03-02 10:59] VITALS: BP 133/72
[2021-03-02 11:30] VITALS: BP 114/68
== END 2021-03-02 11:57 | disposition home or self-care (01) | DRG 713 ==
LOC: OR 09:47 → PACU V 11:41 → MED/SURG 15:18
PROVIDERS: ADMIT Internal Medicine; ATTEND Internal Medicine
PROC: 0V508ZZ Destruction of Prostate, Via Natural or Artificial Opening Endoscopic (ICD-10-PCS; 2021-03-01)
PROC: BT141ZZ Fluoroscopy of Kidneys, Ureters and Bladder using Low Osmolar Contrast (ICD-10-PCS; 2021-03-01)
PROC: 0T788ZZ Dilation of Bilateral Ureters, Via Natural or Artificial Opening Endoscopic (ICD-10-PCS; principal; 2021-03-01 12:00)
DX: N40.1 Benign prostatic hyperplasia with lower urinary tract symptoms (principal); N13.8 Other obstructive and reflux uropathy; N39.0 Urinary tract infection, site not specified; R33.8 Other retention of urine; E66.9 Obesity, unspecified; Z68.32 Body mass index [BMI] 32.0-32.9, adult; E11.9 Type 2 diabetes mellitus without complications; Z79.2 Long term (current) use of antibiotics; K21.9 Gastro-esophageal reflux disease without esophagitis
CPT/HCPCS: 36415; 71046; 74420; 80048; 82948; 83735; 85025; 88305; 93005; C1758; J0290; J1100; J1450; J1580; J2001; J2175; J2270; J2405; J3010; J7030

== ENCOUNTER → 2023-02-12 | Day surgery (SDC) | payer MEDICARE, OTHER ==
[2023-02-08 12:33] LABS: BASOPHILS # (AUTO) 0.1 (0.0-0.1); BASOPHILS % 0.6 % (0.0-1.0); EOSINOPHILS # (AUTO) 0.1 (0.0-0.4); EOSINOPHILS % 1.8 % (0.0-6.0); HEMOGLOBIN 13.1 g/dL (14.0-18.0); LYMPHOCYTES # (AUTO) 1.9 (1.0-3.2); LYMPHOCYTES % 24.3 % (18.0-39.1); MEAN CORPUSCULAR HGB CONC 31.2 g/dL (31-35); MEAN CORPUSCULAR VOLUME 86.6 fL (81-99); MONOCYTES # (AUTO) 0.7 (0.2-0.8); MONOCYTES % 8.1 % (4.4-11.3); NEUTROPHILS # (AUTO) 5.2 (2.1-6.9); NEUTROPHILS % 64.9 % (38.7-80.0); PLATELET COUNT 217 x10e3/uL (140-360); RED BLOOD COUNT 4.85 x10e6/uL (4.3-5.7); RED CELL DISTRIBUTION WIDTH 14.9 % (11.7-14.4)
[~2023-02-12] MED LIST changes: +AMBIEN10 MG PO; +DIATRIZOATE MEGL/DIATRIZOA SOD 120 ML BTL PO ONE; +GLUCAGON FOR INJ 1 MG VIAL ONE; +GLYCOPYRROLATE INJ 0.2 MG/ML VIAL ONE; +LACTATED RINGER'S 1,000 ML ONE; +LIDOCAINE HCL 2% LOCAL INJ 5 ML SDV VIAL INJ ONE; +MIDAZOLAM HCL 2 MG/2 ML VIAL ONE; +POVIDONE IODINE 0.05% 0.05 % ML PO ONE; +PROBIOTIC & AC1 EACH PO; +PROPOFOL IV EMULSION 10 MG/ML 20 ML VIAL ONE
[2023-02-12 15:30] VITALS: BP 156/79; PULSE 69; RESP 14; O2SAT 99
== END | disposition home or self-care (01) ==
LOC: OR 09:37
PROVIDERS: ATTEND Internal Medicine Gastroenterology
DX: K21.9 Gastro-esophageal reflux disease without esophagitis (principal); D12.3 Benign neoplasm of transverse colon; K29.50 Unspecified chronic gastritis without bleeding; K22.89 Other specified disease of esophagus; K44.9 Diaphragmatic hernia without obstruction or gangrene; K57.30 Diverticulosis of large intestine without perforation or abscess without bleeding; R13.10 Dysphagia, unspecified; K64.8 Other hemorrhoids; G47.33 Obstructive sleep apnea (adult) (pediatric); I10 Essential (primary) hypertension; E78.5 Hyperlipidemia, unspecified; M06.9 Rheumatoid arthritis, unspecified; Z88.1 Allergy status to other antibiotic agents; Z01.810 Encounter for preprocedural cardiovascular examination; Z01.812 Encounter for preprocedural laboratory examination; Z79.1 Long term (current) use of non-steroidal anti-inflammatories (NSAID); Z68.39 Body mass index [BMI] 39.0-39.9, adult; Z87.440 Personal history of urinary (tract) infections; Z87.891 Personal history of nicotine dependence
CPT/HCPCS: 36415; 43239; 45384; 45385; 74246; 85025; 88305; 88342; 93005; J1610; J2001; J2250; J2704; J7121; Q9963; 45378